=== PATIENT | female | born 1970 ===

== ENCOUNTER 2016-12-09 18:26 | Emergency (ER) | payer MEDICAID ==
[2016-12-09 18:50] VITALS: BMI 36.1
[2016-12-09 18:53] VITALS: RESP 16; TEMP 98.7; O2SAT 98
[2016-12-09] MEDS ORDERED: Naproxen 550 mg Tab PO STA (19:16)
--- NOTE | 2016-12-09 20:09 | ED PDOC ---
Arrival/HPI - General Chief Complaint: Trauma Time Seen by Provider: 12/09/16 19:15 Historian: Patient - History of Present Illness Narrative History of Present Illness (Text): 12/09/16 20:04 Patient reports that she slipped and nearly did a split with her legs last night and then fell to her side. Now c/o b/l knee pain, R>L. Denies any head injury, LOC, headache, neck pain, back pain, any other extremity pain or injury. PMD Susan Past Medical History - Provider Review Nursing Documentation Reviewed: Yes - Cardiac Hx Cardiac Disorders: Yes Hx Hypertension: Yes - Pulmonary Hx Respiratory Disorders: No - Neurological Hx Neurological Disorder: No - HEENT Hx HEENT Disorder: No - Renal Hx Renal Disorder: No - Endocrine/Metabolic Hx Endocrine Disorders: Yes Hx Hypothyroidism: Yes - Hematological/Oncological Hx Blood Disorders: No - Integumentary Hx Dermatological Disorder: No - Musculoskeletal/Rheumatological Hx Musculoskeletal Disorders: No - Gastrointestinal Hx Gastrointestinal Disorders: Yes Hx Gastroesophageal Reflux: Yes - Genitourinary/Gynecological Hx Genitourinary Disorders: No - Psychiatric Hx Psychophysiologic Disorder: No Hx Substance Use: No - Surgical History Hx Section: Yes Family/Social History - Physician Review Nursing Documentation Reviewed: Yes Family/Social History: No Known Family HX Smoking Status: Never Smoked Hx Alcohol Use: No Hx Substance Use: No Allergies/Home Meds Allergies/Adverse Reactions: Allergies seafood Allergy (Uncoded 12/09/16 18:50) ANAPHYLAXIS Home Medications: Home Meds Medication Instructions Recorded Confirmed Levothyroxine [Synthroid] 0 mg PO DAILY 12/09/16 12/09/16 Losartan [Cozaar] 50 mg PO DAILY 12/09/16 12/09/16 Omeprazole Magnesium [Prilosec] 0 mg PO DAILY 12/09/16 12/09/16 Review of Systems - Review of Systems Constitutional: Normal. absent: Fatigue, Weight Change, Fevers Musculoskeletal: Normal, Arthralgias. absent: Back Pain, Neck Pain Skin: Normal. absent: Rash, Pruritis, Skin Lesions Physical Exam - Physical Exam Narrative Physical Exam (Text): 12/09/16 20:06 GENERAL APPEARANCE: Patient is awake, alert, oriented x 3, in no acute distress. SKIN: Warm, dry; (-) cyanosis. LOWER EXTREMITY: Mild tenderness of knee over lateral and medial aspect of the R knee with no effusion. L knee is nontender. Able to extend actively to 0 degrees; (-) instability on valgus or varus stress. Drawer sign (-). (-) distal neurovascular deficit. 2 point discrimination. Hip, thigh, leg and ankle: (-) tenderness or limitation of motion. Vital Signs Temp Pulse Resp BP Pulse Ox 12/09/16 18:51 98.7 F 86 16 119/84 98 Medical Decision Making ED Course and Treatment: 12/09/16 20:07 45 yo F s/p slip and fall, c/o b/l knee pain, R>L. XRs ordered of the b/l knees , given naprosyn for pain. XR bilateral knees: no fracture, no dislocation, as read by PA Patient advised that official radiology read of XR is still pending and will call the patient if there is any discrepancy within 24 hours. Rhett wrap applied to the right knee. Based on history, exam and diagnostic results plan will be for patient follow-up with PMD. Rx provided. Patient states she fully agrees with and understands discharge instructions. States that she agrees with the plan and disposition. Verbalized and repeated discharge instructions and plan. I have given the patient opportunity to ask any additional questions. Follow up with primary care physician in 1-2 days without fail. Advised to take medication as prescribed. Return to the emergency room at any time for any new or worsening symptoms. - RAD Interpretation Radiology Orders: 12/09/16 19:15 KNEES BILATERAL [RAD] Stat - Medication Orders Current Medication Orders: Discontinued Medications Naproxen (Anaprox Ds) 550 mg PO ONCE STA Stop: 12/09/16 19:17 - PA / [employer] SUPERVISOR / Resident Statement / has reviewed & agrees with the documentation as recorded. Disposition/Present on Arrival - Present on Arrival Any Indicators Present on Arrival: No History of DVT/PE: No History of Uncontrolled Diabetes: No Urinary Catheter: No History of Decub. Ulcer: No History Surgical Site Infection Following: None - Disposition Have Diagnosis and Disposition been Completed?: Yes Diagnosis: Knee sprain, bilateral Disposition: HOME/ ROUTINE Disposition Time: 20:09 Patient Plan: Discharge Condition: GOOD Discharge Instructions (ExitCare): Knee Sprain (ED) Print Language: SYRIAC Additional Instructions: Thank you for letting us take care of you today. You were treated for knee sprain. The emergency medical care you received today was directed at your acute symptoms. If you were prescribed any medication, please fill it and take as directed. It may take several days for your symptoms to resolve. Return to the Emergency Department if your symptoms worsen, do not improve, or if you have any other problems. Please contact your doctor in 2 days for re-evaluation and follow up. Bring any paperwork you were given at discharge with you along with any medications you are taking to your follow up visit. Our treatment cannot replace ongoing medical care by a primary care provider (PCP) outside of the emergency department. Thank you for allowing the [facility] team to be part of your care today. Prescriptions: Naproxen 500 mg PO BID #30 tab Referrals: Harjeet Davis MD [Primary Care Provider] - Follow up with primary Forms: WORK NOTE
[2016-12-09 20:49] VITALS: BP 120/80; PULSE 82
--- NOTE | 2016-12-10 13:07 | RAD ---
PROCEDURE: Bilateral knees HISTORY: pain COMPARISON: Not available TECHNIQUE: AP and lateral views FINDINGS: No evidence of fracture. Joint spaces and articular surfaces are preserved. No joint effusion. IMPRESSION: No acute fracture.
== END 2016-12-09 20:20 | disposition home or self-care (01) ==
LOC: ED 18:26
DX: S83.92XA Sprain of unspecified site of left knee, initial encounter (principal); S83.91XA Sprain of unspecified site of right knee, initial encounter; W01.0XXA Fall on same level from slipping, tripping and stumbling without subsequent striking against object, initial encounter; Y92.89 Other specified places as the place of occurrence of the external cause

== ENCOUNTER 2018-08-09 15:48 | Outpatient (CLI) | payer MEDICAID | END 2018-08-09 15:49 | disposition home or self-care (01) | LOC: RAD 15:48 ==